=== PATIENT | female | born 1960 | race Caucasian/White ===

== ENCOUNTER 2022-12-20 11:36 | Inpatient (IN) | payer OTHER ==
[~2022-12-20] VITALS: Ht 167.6 cm; Wt 91.3 kg
[2022-12-20 11:59] LABS: BASOPHILS ABSOLUTE AUTO 0.02 K/mm3 (0.00-0.23); BASOPHILS PERCENT AUTO 0 % (0-2); EOSINOPHILS ABSOLUTE AUTO 0.01 K/mm3 (0.00-0.68); EOSINOPHILS PERCENT AUTO 0 % (0-6); Hematocrit 28.5 % (33.0-51.0); Hemoglobin 9.9 g/dL (11.5-16.0); IMMATURE GRAN PERCENT AUTO 1 % (0-1); LYMPHOCYTES ABSOLUTE AUTO 1.27 K/mm3 (0.84-5.20); LYMPHOCYTES PERCENT AUTO 8 % (21-46); MONOCYTES ABSOLUTE AUTO 1.38 K/mm3 (0.16-1.47); MONOCYTES PERCENT AUTO 9 % (4-13); Mean Corpuscular HGB 33.7 pg (26.0-34.0); Mean Corpuscular HGB Conc 34.7 g/dL (31.5-36.5); Mean Corpuscular Volume 97 fL (80-100); Mean Platelet Volume 10.2 fL (9.1-12.4); NEUTROPHILS ABSOLUTE AUTO 13.14 K/mm3 (1.96-9.15); NEUTROPHILS PERCENT AUTO 83 % (41-73); Platelet Count 283 K/mm3 (150-400); RDW Coefficient Variation 14.2 % (11.7-14.2); Red Blood Cell Count 2.94 M/mm3 (3.80-5.20); White Blood Cell Count 15.92 K/mm3 (4.00-11.30)
[2022-12-20 12:09] LABS: Source, Urine Voided
[2022-12-20 12:17] LABS: Appearance, Urine Hazy (Clear); Bilirubin, Urine Neg (Neg); Blood, Urine Neg (Neg); Color, Urine Yellow (P-Yellow); Glucose Qualitative, Urine Neg (Neg); Ketones, Urine 1+ (Neg); Leukocyte Esterase, Urine Neg (Neg); Nitrite, Urine Neg (Neg); Protein, Urine 1+ (Neg); Specific Gravity, Urine 1.025 (1.003-1.022); Urobilinogen, Urine 1+ (Normal)
[2022-12-20 12:27] LABS: Albumin/Globulin Ratio 0.5 (0.8-1.8); Bilirubin, Total 2.2 mg/dL (0.1-1.0); Bun/Creatinine Ratio 10.1 (12.0-20.0); Creatinine, Blood 0.8 mg/dL (0.40-1.00); Globulin, Blood 3.7 g/dL (2.2-4.0); Total Protein, Blood 5.7 g/dL (6.4-8.2)
[2022-12-20 12:29] LABS: Hyaline Casts 50-100 /lpf (0-2)
[2022-12-20 12:30] LABS: White Blood Cells, Urine 0-2 /hpf (0-5)
[2022-12-20 12:31] LABS: Amorphous Heavy (0-Heavy); Bacteria Few /hpf; Red Blood Cells, Urine 0-2 /hpf (0-2); Squamous Epithelial Cells Rare /hpf (Few)
[2022-12-20 12:32] LABS: Renal Epithelial Few /hpf (0-Rare)
[2022-12-20 17:13] LABS: Creatine Kinase MB 12.9 ng/mL (0.0-3.6); Creatine Kinase MB Index 1.5 (0.0-4.0); Phosphorus, Blood 3.1 mg/dL (2.5-4.9); Thyroid Stimulating Hormone 2.21 uIU/mL (0.360-4.800)
[2022-12-20 18:44] VITALS: BP 109/73
[2022-12-20] MEDS ORDERED: LOSA25 (18:52)
[2022-12-20] MEDS ORDERED: PREG25 PO (18:53)
--- NOTE | 2022-12-20 19:25 | NUR ---
PT ARRIVED TO THE MEDICAL FLOOR VIA GURNEY FROM THE ER, THE PT WAS ORIENTED TO THE ROOM LAYOUT AND CALL SYSTEM. PT STATED THAT SHE WAS UNABLE TO STAND AND TRANSFER TO THE BED. REPORT GIVEN TO LUIS F SETH
[2022-12-20] MEDS ORDERED: DODEX1000 MCG/3 SC (21:56)
[2022-12-20] MEDS ORDERED: Naltrexone HCl50 MG PO (21:57)
[2022-12-20] MEDS ORDERED: DULOXETINE HCL60 M1 PO (21:57)
[2022-12-20] MEDS ORDERED: ATHLETE'S FOO35.4 GM TOP (21:59)
[2022-12-20] MEDS ORDERED: LOSA50 PO (22:00)
--- NOTE | 2022-12-21 00:13 | NUR ---
PATIENT CONFUSED AT TIMES PULLING GOWN, TELELMETRY LEADS, AND PULLING AT PIV X TWO. NOT ABLE TO FOLLOW DIRECTION AT THIS TIME. WCTM.
--- NOTE | 2022-12-21 04:28 | NUR ---
SHIFT SUMMARY PATIENT HAD NO ACUTE CHANGES. AXOX 3 AND ANXIOUS/AGITATED AT TIMES. NOT ALWAYS ABLE TO FOLLOW DIRECTION. PULLED OFF GOWN AND TELEMETRY X THREE. PULLED AT LINES AND CORDS. NS INFUSING AT 100 mL/HR. TELE MONITOR NSR 89. CIWA ZERO. DENIES CHEST PAIN, SOB, AND N/V. AWAKE MOST OF SHIFT. CALL LIGHT IN REACH. BED IN LOWEST POSITION. WILL CONTINUE TO MONITOR UNTIL DAY SHIFT NURSE ASSUMES CARE.
[2022-12-21 04:47] VITALS: BP 99/59
[2022-12-21 05:00] LABS: BASOPHILS ABSOLUTE AUTO 0.02 K/mm3 (0.00-0.23); BASOPHILS PERCENT AUTO 0 % (0-2); EOSINOPHILS ABSOLUTE AUTO 0.01 K/mm3 (0.00-0.68); EOSINOPHILS PERCENT AUTO 0 % (0-6); Hematocrit 26.8 % (33.0-51.0); Hemoglobin 9.4 g/dL (11.5-16.0); IMMATURE GRAN ABSOLUTE AUTO 0.08 K/mm3 (0.00-0.10); IMMATURE GRAN PERCENT AUTO 1 % (0-1); LYMPHOCYTES ABSOLUTE AUTO 1.85 K/mm3 (0.84-5.20); LYMPHOCYTES PERCENT AUTO 15 % (21-46); MONOCYTES ABSOLUTE AUTO 1.23 K/mm3 (0.16-1.47); MONOCYTES PERCENT AUTO 10 % (4-13); Mean Corpuscular HGB 33.7 pg (26.0-34.0); Mean Corpuscular HGB Conc 35.1 g/dL (31.5-36.5); Mean Corpuscular Volume 96 fL (80-100); Mean Platelet Volume 10.3 fL (9.1-12.4); NEUTROPHILS ABSOLUTE AUTO 9.43 K/mm3 (1.96-9.15); NEUTROPHILS PERCENT AUTO 75 % (41-73); Platelet Count 286 K/mm3 (150-400); RDW Coefficient Variation 14.5 % (11.7-14.2); RDW Standard Deviation 50.4 fL (35.1-46.3); Red Blood Cell Count 2.79 M/mm3 (3.80-5.20); White Blood Cell Count 12.62 K/mm3 (4.00-11.30)
[2022-12-21 05:26] LABS: Albumin, Blood 1.8 g/dL (3.4-5.0); Albumin/Globulin Ratio 0.5 (0.8-1.8); Bilirubin, Total 1.9 mg/dL (0.1-1.0); Bun/Creatinine Ratio 10.7 (12.0-20.0); Calcium, Blood 7.9 mg/dL (8.5-10.1); Creatine Kinase MB 12.9 ng/mL (0.0-3.6); Creatine Kinase MB Index 1.5 (0.0-4.0); Creatinine, Blood 0.75 mg/dL (0.40-1.00); Globulin, Blood 3.5 g/dL (2.2-4.0); Magnesium, Blood 2.3 mg/dL (1.6-2.4); Phosphorus, Blood 3.1 mg/dL (2.5-4.9); Potassium, Blood 3.3 mmol/L (3.5-5.5); Total Protein, Blood 5.3 g/dL (6.4-8.2)
[2022-12-21 07:17] VITALS: BP 106/80
[2022-12-21 10:49] LABS: Creatine Kinase MB 12.3 ng/mL (0.0-3.6); Creatine Kinase MB Index 1.6 (0.0-4.0)
[2022-12-21 15:43] VITALS: BP 113/70
[2022-12-21 16:11] LABS: Percent Saturation 79.1 % (15.0-50.0)
[2022-12-21 16:13] LABS: Potassium, Blood 3.3 mmol/L (3.5-5.5)
[2022-12-21 19:31] VITALS: BP 105/87
--- NOTE | 2022-12-21 20:32 | NUR ---
SHIFT SUMMARY PTN WITH SOME AGITATION AND ANXIETY THIS SHIFT. CIWA SCORES 8 AND 4. CONFUSION SEEMED TO INCREASE TOWARDS END OF SHIFT. C/O OF LEG CRAMPS. PTN HAD DIFFICULTY SWALLOWING PILLS, ENDED UP DISSOLVING POTASSIUM. PTN TREATED PER EMAR. CONTINUE TO MONITOR.
--- NOTE | 2022-12-21 20:54 | NUR ---
PATIENT HAVING INCREASED AGITATION AND CONFUSION. PULLED TELEMETRY LEADS OFF, GOWN, AND PULLED OUT PIV. HAVING VISUAL HALLUCINATIONS SEEING SISTER AND A RADIO IN ROOM. WCTM.
--- NOTE | 2022-12-22 04:36 | NUR ---
SHIFT SUMMARY PATIENT HAD INCREASED CONFUSION AND AGITATION. PULLED MULTIPLE PIVS AND TELEMETRY LEADS OFF. PATIENT THREW TELEMETRY BOX AND GOWN ON FLOOR. CRUSHED STRYOFOAM WATER CUP SPILLING WATER ON FLOOR. HER PHONE WAS FOUND ON FLOOR MULTIPLE TIMES. HOSPITALIST KAN INDUSTRIAL ECONOMIST ORDERED BILATERAL SOFT WRIST RESTRAINTS. AXOX 2-3 AND BEDREST. NEW PIV PLACED. TELE MONITOR NSR 99. CBG 108. CIWA 6-7. VISUAL HALLUCINATIONS SEEING SISTER AND RADIO IN ROOM. VSS/LOW GRADE TEMP 100.0. DENIES CHEST PAIN, SOB, AND N/V. CALL LIGHT IN REACH. BED IN LOWEST POSITION. WILL CONTINUE TO MONITOR UNTIL DAY SHIFT NURSE ASSUMES CARE.
[2022-12-22 05:40] LABS: BASOPHILS ABSOLUTE AUTO 0.03 K/mm3 (0.00-0.23); BASOPHILS PERCENT AUTO 0 % (0-2); EOSINOPHILS ABSOLUTE AUTO 0.05 K/mm3 (0.00-0.68); EOSINOPHILS PERCENT AUTO 0 % (0-6); Hematocrit 27.9 % (33.0-51.0); Hemoglobin 9.6 g/dL (11.5-16.0); IMMATURE GRAN ABSOLUTE AUTO 0.14 K/mm3 (0.00-0.10); IMMATURE GRAN PERCENT AUTO 1 % (0-1); LYMPHOCYTES ABSOLUTE AUTO 2.07 K/mm3 (0.84-5.20); LYMPHOCYTES PERCENT AUTO 16 % (21-46); MONOCYTES ABSOLUTE AUTO 1.17 K/mm3 (0.16-1.47); MONOCYTES PERCENT AUTO 9 % (4-13); Mean Corpuscular HGB 34.2 pg (26.0-34.0); Mean Corpuscular HGB Conc 34.4 g/dL (31.5-36.5); Mean Corpuscular Volume 99 fL (80-100); Mean Platelet Volume 9.9 fL (9.1-12.4); NEUTROPHILS ABSOLUTE AUTO 9.44 K/mm3 (1.96-9.15); NEUTROPHILS PERCENT AUTO 73 % (41-73); Platelet Count 288 K/mm3 (150-400); RDW Coefficient Variation 14.6 % (11.7-14.2); RDW Standard Deviation 53.6 fL (35.1-46.3); Red Blood Cell Count 2.81 M/mm3 (3.80-5.20)
[2022-12-22 06:18] LABS: Albumin, Blood 1.9 g/dL (3.4-5.0); Albumin/Globulin Ratio 0.5 (0.8-1.8); Bilirubin, Total 1.7 mg/dL (0.1-1.0); Bun/Creatinine Ratio 13.3 (12.0-20.0); Calcium, Blood 7.8 mg/dL (8.5-10.1); Creatinine, Blood 0.68 mg/dL (0.40-1.00); Globulin, Blood 3.7 g/dL (2.2-4.0); Phosphorus, Blood 2.9 mg/dL (2.5-4.9); Potassium, Blood 3.7 mmol/L (3.5-5.5); Total Protein, Blood 5.6 g/dL (6.4-8.2)
[2022-12-22 07:43] VITALS: BP 107/96
[2022-12-22 15:33] VITALS: BP 109/76
--- NOTE | 2022-12-22 17:56 | NUR ---
SHIFT SUMMARY NO ACUTE CHANGES DURING SHIFT. PT ALERT AND ORIENTED, CALLS APPOPRIATELY. CIWA SCORE 2 DURING SHIFT. RESTRAINTS REMOVED @ 0830, PT BEHAVING APPROPRIATELY. PT REQUIRING PLACEMENT PER FAMILY MEMBERS. WILL CONTINUE TO MONITOR. CALL LIGHT WITHIN REACH.
[2022-12-22 19:39] VITALS: BP 115/95
--- NOTE | 2022-12-23 04:51 | NUR ---
SHIFT SUMMARY NOC PT A/O X 4. HAD C/O OF PAIN IN BLE AND WAS MEDICATED PER EMAR. PT ON TELE RUNNING NSR @ 97 BPM. PT HAD NO BEHAIVORAL ISSUES DURING SHIFT. PT IS AWAITING SNF PLACEMENT. PT IS CURRENTLY RESTING WITH BED IN LOWEST POSITION, AND CALL LIGHT WITHIN REACH.
[2022-12-23 05:36] LABS: BASOPHILS ABSOLUTE AUTO 0.03 K/mm3 (0.00-0.23); BASOPHILS PERCENT AUTO 0 % (0-2); EOSINOPHILS ABSOLUTE AUTO 0.05 K/mm3 (0.00-0.68); EOSINOPHILS PERCENT AUTO 0 % (0-6); Hematocrit 25.1 % (33.0-51.0); Hemoglobin 8.6 g/dL (11.5-16.0); IMMATURE GRAN ABSOLUTE AUTO 0.12 K/mm3 (0.00-0.10); IMMATURE GRAN PERCENT AUTO 1 % (0-1); LYMPHOCYTES ABSOLUTE AUTO 2.17 K/mm3 (0.84-5.20); LYMPHOCYTES PERCENT AUTO 18 % (21-46); MONOCYTES ABSOLUTE AUTO 0.88 K/mm3 (0.16-1.47); MONOCYTES PERCENT AUTO 8 % (4-13); Mean Corpuscular HGB 33.9 pg (26.0-34.0); Mean Corpuscular HGB Conc 34.3 g/dL (31.5-36.5); Mean Corpuscular Volume 99 fL (80-100); Mean Platelet Volume 10.4 fL (9.1-12.4); NEUTROPHILS ABSOLUTE AUTO 8.56 K/mm3 (1.96-9.15); NEUTROPHILS PERCENT AUTO 72 % (41-73); Platelet Count 280 K/mm3 (150-400); RDW Coefficient Variation 14.8 % (11.7-14.2); RDW Standard Deviation 53.1 fL (35.1-46.3); Red Blood Cell Count 2.54 M/mm3 (3.80-5.20); White Blood Cell Count 11.81 K/mm3 (4.00-11.30)
[2022-12-23 06:00] LABS: Bun/Creatinine Ratio 13.2 (12.0-20.0); Calcium, Blood 7.8 mg/dL (8.5-10.1); Creatinine, Blood 0.68 mg/dL (0.40-1.00); Potassium, Blood 3.5 mmol/L (3.5-5.5)
[2022-12-23 07:39] VITALS: BP 105/82
--- NOTE | 2022-12-23 09:49 | NUR ---
[facility]
[2022-12-23 15:33] VITALS: BP 104/82
--- NOTE | 2022-12-23 17:26 | NUR ---
SHIFT SUMMARY: PT ORIENTED WITH NO HALLUCINATIONS TODAY. LYRICA INCREASED TO TREAT PT'S SPASMS IN LEFT LEG AND TYLENOL FOR PAIN WAS ADMINISTERED. PT ABLE TO GET SOME REST ONCE PAIN DECREASED. BOWEL CARE WAS INITIATED. PT LAST BOWEL MOVEMENT WAS 12/19/22. PT HAS BEEN INCONT OF URINE FOR MY SHIFT. PT ON TELE RUNNING SINUS. IV IN RFA STILL PATENT. EXCORIATION IN GROIN TREATED WITH PINK CREAM. PT RESTING COMFORTABLY WITH CALL LIGHT IN REACH.
[2022-12-23 19:24] VITALS: BP 121/92
[2022-12-24 02:36] VITALS: BP 116/78
[2022-12-24 05:44] LABS: Albumin, Blood 1.8 g/dL (3.4-5.0); Anion Gap 9 mmol/L (6-16); Blood Urea Nitrogen 7 mg/dL (8-24); Bun/Creatinine Ratio 11.1 (12.0-20.0); CO2, Blood 28 mmol/L (21-32); Calcium, Blood 7.8 mg/dL (8.5-10.1); Chloride, Blood 93 mmol/L (98-108); Creatinine, Blood 0.63 mg/dL (0.40-1.00); Glomerular Filtration Rate 100 (60-); Glucose, Blood 95 mg/dL (70-99); Magnesium, Blood 1.7 mg/dL (1.6-2.4); Phosphorus, Blood 2.9 mg/dL (2.5-4.9); Potassium, Blood 3.7 mmol/L (3.5-5.5); Sodium, Blood 130 mmol/L (136-145)
[2022-12-24 08:02] VITALS: BP 103/79
[2022-12-24 10:12] LABS: Creatine Kinase MB 9.8 ng/mL (0.0-3.6); Creatine Kinase MB Index 1.4 (0.0-4.0)
--- NOTE | 2022-12-24 11:29 | NUR ---
VERBAL FROM SCHUYLER TO RADHA TELE.
--- NOTE | 2022-12-24 12:06 | NUR ---
PT COMMUNICATION-RN CALLED [facility] IN PT REQUESTED BY DR. PAYAN AND DR. MALDONADO. RN ASKED IF PT COULD PLEASE BE EVALUATED AGAIN FOR DISPO. PT SAID OF TODAY ON SUNDAYS, PT IS RESERVED FOR NEW EVALUATIONS ONLY AND MOST LIKELY THIS PT WILL BE SEEN TOMORROW ON SUNDAY.
[2022-12-24 16:14] VITALS: BP 110/70
--- NOTE | 2022-12-24 18:23 | NUR ---
NO ACUTE EVENTS OR CHANGES THIS SHIFT. LEFT HIP PAIN HAS BEEN MINIMAL TO NONE THIS SHIFT. AAOX3-4 THIS SHIFT. X1 ASSIST.
[2022-12-24 19:45] VITALS: BP 107/75
--- NOTE | 2022-12-25 04:16 | NUR ---
SHIFT SUMMARY; NO ACUTE CHANGES OVERNIGHT. THE PT HAS BEEN SLEEPING IN BED FOR THE ENTIRETY OF THE NIGHT. THE PT IS AXO X4 AND A 2 PERSON MAX ASSIST ALTHOUGH THE PT NEVER ATTEMPTED TO GET OUT OF BED/GOT OUT OF BED. THE PT DID REPORT SOME L HIP PAIN/MUSCLE SPASMS LAST NIGHT TYLENOL PROVIDED MINIMAL RELIEF. THE PT OTHERWISE DENIES ANY PAIN, SOB, CHEST PAIN/PRESSURE, OR N/V. CURRENTLY THE PT IS SLEEPING IN BED WITH THE BED IN THE LOWEST POSITION AND THE CALL LIGHT AT BEDSIDE.
[2022-12-25 05:25] LABS: Bun/Creatinine Ratio 12.7 (12.0-20.0); Calcium, Blood 7.7 mg/dL (8.5-10.1); Creatinine, Blood 0.63 mg/dL (0.40-1.00); Potassium, Blood 3.9 mmol/L (3.5-5.5)
[2022-12-25 05:50] VITALS: BP 121/64
[2022-12-25 07:37] VITALS: BP 112/86
[2022-12-25 09:54] VITALS: BP 138/86
[2022-12-25 15:43] VITALS: BP 110/73
--- NOTE | 2022-12-25 18:04 | NUR ---
SHIFT SUMMARY- PT ALERT AND ORIENTED X3. SPOKE TO EARLIER IN THE SHIFT AND RECIEVED A TID ORDER FOR FLEXERIL PRN. AFTER SHE RECIEVED THAT SHE WAS ABLE TO WORK WITH PHYSICAL THERAPY AND GET UP TO THE CHAIR. PT WAS A 1PA TO THE CHAIR AND A 3PA BACK TO THE BED. SHE IS 1-2PA WITH BED MOBILITY. PT INCONTINENT OF BOWEL AND BLADDER, HAD A SMALL BM THIS EVENING. PT IN BED ATTENDS CHANGE IN PROGRESS, CALL LIGHT IN REACH NO CURRENT S&S OF DISTRESS NOTED AT THIS TIME WILL PASS ON TO NIGHT RN IN BEDSIDE REPORT.
[2022-12-25 20:17] VITALS: BP 123/80
--- NOTE | 2022-12-26 04:59 | NUR ---
SHIFT SUMMARY PT HAVING BILATERAL LEG PAIN. PT GIVEN FLEXARIL AND TYLENOL FOR PAIN. PT DOES HAVE BRUISING THROUGHOUT AND HAS A SKINTEAR TO L ELBOW THAT IS COVERED WITH A MEPILEX DRESSING. NO ACUTE CHANGES.
[2022-12-26 07:34] VITALS: BP 125/78
[2022-12-26 07:50] LABS: BASOPHILS ABSOLUTE AUTO 0.04 K/mm3 (0.00-0.23); BASOPHILS PERCENT AUTO 0 % (0-2); EOSINOPHILS ABSOLUTE AUTO 0.15 K/mm3 (0.00-0.68); EOSINOPHILS PERCENT AUTO 2 % (0-6); Hematocrit 27.9 % (33.0-51.0); Hemoglobin 9.4 g/dL (11.5-16.0); IMMATURE GRAN ABSOLUTE AUTO 0.12 K/mm3 (0.00-0.10); IMMATURE GRAN PERCENT AUTO 1 % (0-1); LYMPHOCYTES PERCENT AUTO 15 % (21-46); MONOCYTES ABSOLUTE AUTO 0.81 K/mm3 (0.16-1.47); MONOCYTES PERCENT AUTO 9 % (4-13); Mean Corpuscular HGB 34.1 pg (26.0-34.0); Mean Corpuscular HGB Conc 33.7 g/dL (31.5-36.5); Mean Corpuscular Volume 101 fL (80-100); Mean Platelet Volume 9.8 fL (9.1-12.4); NEUTROPHILS ABSOLUTE AUTO 7.05 K/mm3 (1.96-9.15); NEUTROPHILS PERCENT AUTO 74 % (41-73); Platelet Count 284 K/mm3 (150-400); RDW Coefficient Variation 15.6 % (11.7-14.2); Red Blood Cell Count 2.76 M/mm3 (3.80-5.20); White Blood Cell Count 9.57 K/mm3 (4.00-11.30)
[2022-12-26 08:14] LABS: Bun/Creatinine Ratio 14.9 (12.0-20.0); Calcium, Blood 8.1 mg/dL (8.5-10.1); Creatinine, Blood 0.61 mg/dL (0.40-1.00); Potassium, Blood 3.7 mmol/L (3.5-5.5)
[2022-12-26 15:16] VITALS: BP 129/99
--- NOTE | 2022-12-26 15:53 | NUR ---
BLADDER SCAN AT 1553 WAS 123 ML.
--- NOTE | 2022-12-26 17:26 | NUR ---
SHIFT SUMMARY PT AOX4, MAKES HER NEEDS KNOWN. 2P MAX ASSIST, PT WAS IN THE CHAIR TWICE THIS SHIFT. SHE IS INCONTINENT OF URINE AND BOWEL, BRIEF CHANGED T/O THE SHIFT. PT WAS MEDICATED FOR PAIN PER THE EMAR. NO OTHER COMPLAINTS FROM THE PT, NO CP/SOB/N/V NOTED. PLAN IS FOR PT TO D/C TO A SNIF FOR FURTHER THERAPY. WILL REPORT TO ONCOMING NURSE.
[2022-12-26 19:43] VITALS: BP 122/74
--- NOTE | 2022-12-27 04:06 | NUR ---
SHIFT SUMMARY; NO ACUTE CHANGES OVERNIGHT. THE PT HAS BEEN SLEEPING IN BED FOR THE ENTIRETY OF THE NIGHT. THE PT ENDORSES L HIP PAIN/MUSCLE SPASMS FOR WHICH SHE RECIEVED FLEXERIL FOR THIS EVENING W/ GOOD RELIEF. THE PT DENIES ANY SOB, CHEST PAIN/PRESSURE, N/V. CURRENTLY THE PT IS SLEEPING IN BED WITH THE BED IN THE LOWEST POSITION AND THE CALL LIGHT AT BEDSIDE.
[2022-12-27 05:10] VITALS: BP 124/86
[2022-12-27 07:50] VITALS: BP 114/87
[2022-12-27 15:24] VITALS: BP 94/78
[2022-12-27] MEDS ORDERED: MULVITA PO (15:38)
[2022-12-27] MEDS ORDERED: METO25 PO (15:38)
[2022-12-27] MEDS ORDERED: PAIN RELIEF1 EACH TOP (15:38)
[2022-12-27] MEDS ORDERED: MELA3 PO (15:38)
[2022-12-27] MEDS ORDERED: B-1100 M1 PO (15:39)
[2022-12-27 15:40] LABS: SARS-Cov-2 (COVID-19) PCR, MMC NEGATIVE (NEGATIVE)
--- NOTE | 2022-12-27 16:58 | NUR ---
DISCHARGE NOTE PT DISCHARGED TO [facility] BY AMBULANCE. PERSONAL BELONGINGS RETURNED. NO IV PRESENT UPON DISCHARGE.
--- NOTE | 2022-12-27 17:10 | NUR ---
DISCHARGE NOTE CONT; REPORT GIVEN TO CODY NURSE, AT [facility].
== END 2022-12-27 16:55 | DRG 308 ==
LOC: ER 11:36 → MEDS 17:52 → ENPENDDIS 12-27 15:46 → MEDS 12-27 16:55
PROVIDERS: Family Medicine; Internal Medicine; Student in an Organized Health Care Education/Training Program; ADMIT Internal Medicine
DX: I48.91 Unspecified atrial fibrillation (principal); G92.8 Other toxic encephalopathy; E87.1 Hypo-osmolality and hyponatremia; I10 Essential (primary) hypertension; Z68.22 Body mass index [BMI] 22.0-22.9, adult; D64.9 Anemia, unspecified; T79.6XXA Traumatic ischemia of muscle, initial encounter; F10.20 Alcohol dependence, uncomplicated; E66.9 Obesity, unspecified; D63.8 Anemia in other chronic diseases classified elsewhere; E11.42 Type 2 diabetes mellitus with diabetic polyneuropathy; K70.10 Alcoholic hepatitis without ascites; W18.30XA Fall on same level, unspecified, initial encounter; R79.89 Other specified abnormal findings of blood chemistry; R29.6 Repeated falls; F41.8 Other specified anxiety disorders; K76.0 Fatty (change of) liver, not elsewhere classified; Z20.822 Contact with and (suspected) exposure to COVID-19; M79.652 Pain in left thigh; E87.6 Hypokalemia; E53.8 Deficiency of other specified B group vitamins; G89.29 Other chronic pain; M54.9 Dorsalgia, unspecified; I05.0 Rheumatic mitral stenosis; M62.838 Other muscle spasm; Z91.81 History of falling; Z98.890 Other specified postprocedural states; Z88.8 Allergy status to other drugs, medicaments and biological substances; Z88.0 Allergy status to penicillin; Z98.84 Bariatric surgery status; Z71.41 Alcohol abuse counseling and surveillance of alcoholic
CPT/HCPCS: 36415; 73502; 76705; 80048; 80053; 80069; 81001; 82140; 82550; 82553; 82607; 82728; 82746; 82947; 83036; 83540; 83550; 83735; 83880; 84100; 84132; 84443; 85025; 93005; 93010; 93306; 93922; 93971; 96365; 97110; 97162; 97165; 97530; 97535; 99285-25; A9270; J1650; J2060; J3475; J7030; U0002

== ENCOUNTER 2023-06-14 12:24 | Emergency (ER) | payer OTHER ==
[~2023-06-14] VITALS: Ht 167.6 cm; Wt 83.9 kg
[~2023-06-14 12:24] MED LIST: ACET500 PO; ATHLETE'S FOO35.4 GM TOP; B-1100 M1 PO; DODEX1000 MCG/3 SC; DULOXETINE HCL60 M1 PO; LOSA25; LOSA50 PO; MELA3 PO; METO25 PO; MULVITA PO; Naltrexone HCl50 MG PO; PAIN RELIEF1 EACH TOP; PREG25 PO; TRAM50 PO
[2023-06-14 13:03] LABS: BASOPHILS ABSOLUTE AUTO 0.03 K/mm3 (0.00-0.23); BASOPHILS PERCENT AUTO 0 % (0-2); EOSINOPHILS ABSOLUTE AUTO 0.03 K/mm3 (0.00-0.68); EOSINOPHILS PERCENT AUTO 0 % (0-6); Hematocrit 31.9 % (33.0-51.0); Hemoglobin 10.4 g/dL (11.5-16.0); IMMATURE GRAN ABSOLUTE AUTO 0.06 K/mm3 (0.00-0.10); IMMATURE GRAN PERCENT AUTO 1 % (0-1); LYMPHOCYTES ABSOLUTE AUTO 1.04 K/mm3 (0.84-5.20); LYMPHOCYTES PERCENT AUTO 13 % (21-46); MONOCYTES ABSOLUTE AUTO 0.73 K/mm3 (0.16-1.47); MONOCYTES PERCENT AUTO 9 % (4-13); Mean Corpuscular HGB 32.8 pg (26.0-34.0); Mean Corpuscular HGB Conc 32.6 g/dL (31.5-36.5); Mean Corpuscular Volume 101 fL (80-100); Mean Platelet Volume 9.7 fL (9.1-12.4); NEUTROPHILS ABSOLUTE AUTO 5.96 K/mm3 (1.96-9.15); NEUTROPHILS PERCENT AUTO 76 % (41-73); Platelet Count 329 K/mm3 (150-400); RDW Coefficient Variation 14.9 % (11.7-14.2); RDW Standard Deviation 54.8 fL (35.1-46.3); Red Blood Cell Count 3.17 M/mm3 (3.80-5.20); White Blood Cell Count 7.85 K/mm3 (4.00-11.30)
[2023-06-14 13:30] LABS: Albumin, Blood 2.6 g/dL (3.4-5.0); Albumin/Globulin Ratio 0.6 (0.8-1.8); Bilirubin, Total 1.1 mg/dL (0.1-1.0); Bun/Creatinine Ratio 8.1 (12.0-20.0); Calcium, Blood 8.6 mg/dL (8.5-10.1); Creatinine, Blood 0.5 mg/dL (0.40-1.00); Globulin, Blood 4.1 g/dL (2.2-4.0); Potassium, Blood 3.8 mmol/L (3.5-5.5); Total Protein, Blood 6.7 g/dL (6.4-8.2)
[2023-06-14] MEDS ORDERED: OXAYDO5 M1 PO (16:30)
[2023-06-14] MEDS ORDERED: ONDA4ODT MM (16:30)
[2023-06-14 16:40] VITALS: BP 121/96
== END 2023-06-14 17:04 | disposition home or self-care (01) ==
LOC: ER 12:24
PROVIDERS: Student in an Organized Health Care Education/Training Program
DX: G89.18 Other acute postprocedural pain (principal); M25.552 Pain in left hip; Z88.6 Allergy status to analgesic agent; Z88.0 Allergy status to penicillin; Z79.899 Other long term (current) drug therapy; I10 Essential (primary) hypertension; E11.40 Type 2 diabetes mellitus with diabetic neuropathy, unspecified
CPT/HCPCS: 80053; 83735; 85025; 93005; 93010; 96374; 99284-25; A9270; J2405

== ENCOUNTER → 2024-01-29 | Outpatient (CLI) | payer OTHER ==
[~2024-01-29] MED LIST changes: +ONDA4ODT MM; +OXAYDO5 M1 PO
[2024-01-29 20:01] LABS: Adenovirus F 40/41 Not Detected (NOT DETECT); Astrovirus Not Detected (NOT DETECT); Campylobacter Sp Not Detected (NOT DETECT); Cryptosporidium Not Detected (NOT DETECT); Cyclospora Cayetanensis Not Detected (NOT DETECT); E. Coli O157 Not Detected (NOT DETECT); Entamoeba Histolytica Not Detected (NOT DETECT); Enteroaggregative E. coli-EAEC Not Detected (NOT DETECT); Enteropathogenic E. coli-EPEC Not Detected (NOT DETECT); Enterotoxigenic E. coli-ETEC Not Detected (NOT DETECT); Giardia Lamblia Not Detected (NOT DETECT); Norovirus GI/GII Detected (NOT DETECT); Plesiomonas Shigelloides Not Detected (NOT DETECT); Rotavirus A Not Detected (NOT DETECT); Salmonella Sp Not Detected (NOT DETECT); Sapovirus Not Detected (NOT DETECT); Shiga Toxin-prod E. coli-STEC Not Detected (NOT DETECT); Shigella/Enteroin E. coli-EIEC Not Detected (NOT DETECT); Vibrio Cholerae Not Detected (NOT DETECT); Vibrio Sp Not Detected (NOT DETECT); Yersinia Enterocolitica Not Detected (NOT DETECT)
== END | disposition home or self-care (01) ==
LOC: LAB SHORT 17:07
PROVIDERS: Family Medicine
DX: R10.84 Generalized abdominal pain (principal); R19.7 Diarrhea, unspecified
CPT/HCPCS: 87507

== ENCOUNTER 2025-07-29 03:18 | Emergency (ER) | payer OTHER ==
[~2025-07-29] VITALS: Ht 167.6 cm; Wt 81.2 kg
[2025-07-29] MEDS ORDERED: OXYC5 PO (04:54)
[2025-07-29] MEDS ORDERED: RX Prepack 6 Tabs Oxycodone 5mg UD ONE (04:55)
[2025-07-29] MEDS ORDERED: OxyCODONE 5 mg/Acetamin 325 mg TABLET PO ONE (04:55)
[2025-07-29 05:14] VITALS: BP 140/89
== END 2025-07-29 05:17 | disposition home or self-care (01) ==
LOC: ER 03:18
DX: S22.41XA Multiple fractures of ribs, right side, initial encounter for closed fracture (principal); W18.09XA Striking against other object with subsequent fall, initial encounter; Z88.6 Allergy status to analgesic agent; Z88.0 Allergy status to penicillin
CPT/HCPCS: 71101; 99283-25; A9270